=== PATIENT | male | born 1965 | race Caucasian/White ===

== ENCOUNTER 2016-10-25 22:11 | Inpatient (IN) | payer MEDICAID ==
[~2016-10-25] VITALS: Ht 172.7 cm; Wt 94.4 kg
[2016-10-25] MEDS ORDERED: ALBUTEROL SULF 2.5 MG/0.5ML(0.5%) NEB SOLN NEB ONE (22:30)
[2016-10-25] MEDS ORDERED: methylPREDNISolone SOD SUCC 125 MG/2 ML VL IV ONE (22:30)
[2016-10-25] MEDS ORDERED: IPRATROPIUM BROM 0.5 MG/2.5ML INH SOL NEB ONE (22:30)
[2016-10-25 22:57] LABS: DEFINITIVE VIEW TRANSMISSION; Hematocrit 36.7 % (41.0-53.0); Hemoglobin 12.6 g/dL (13.5-17.5); Mean Corpuscular Hemoglobin 34.9 pg (28.0-32.0); Mean Corpuscular Hgb Conc. 34.2 g/dL (32.0-36.0); Mean Platelet Volume 8.9 fL (7.4-10.4); Platelet Count (auto) 45 10^3/uL (140-450); Red Cell Distribution Width 17.8 % (11.6-16.0); White Blood Cell 8.5 10^3/uL (4.4-10.8)
[2016-10-25 23:04] LABS: Metamyelocytes % 0; Myelocytes % 0; Promyelocytes % 0; Reactive Lymphocytes 0
[2016-10-25 23:12] LABS: Albumin 2.5 g/dL (3.4-5.0); Potassium 3.5 mmol/L (3.5-5.1)
[2016-10-25 23:17] LABS: Bilirubin, Total 5.7 mg/dL (0.2-1.0); Total Protein 6.4 g/dL (6.4-8.2)
[2016-10-25 23:24] LABS: B-Type Natriuretic Peptide 100.08 pg/mL (0-100); Temperature: 20.8 C (20.0-25.0)
[2016-10-26] MEDS ORDERED: SODIUM CHLORIDE 0.9% 1,000 ML IV ONE (00:45)
[2016-10-26 00:57] LABS: Burr Cells FEW; Macrocytosis Slight; Platelet Estimate Decreased
[2016-10-26] MEDS ORDERED: LORazepam 2MG/ML-1ML VIAL IV ONE (02:15)
[2016-10-26 02:18] LABS: Urine RBC None Seen /hpf (0 - 3)
[2016-10-26 02:39] LABS: Urine Bilirubin 1+ (Negative); Urine Blood Negative /uL (Negative); Urine Color Yellow (Yellow); Urine Glucose Normal (Normal); Urine Ketone Negative (Negative); Urine Nitrite Negative (Negative); Urine Urobilinogen Normal (Negative)
[2016-10-26] MEDS ORDERED: HYDROmorphone HCL 2 MG/ML VL IM ONE (05:30)
[2016-10-26] MEDS ORDERED: ONDANSETRON HCL 4 MG/2 ML VIAL IV ONE (05:30)
[2016-10-26 07:57] LABS: Amylase 29 U/L (25-115)
[2016-10-26] MEDS ORDERED: SPIRONOLACTONE 25 MG TAB PO ONE (08:15)
[2016-10-26] MEDS ORDERED: FUROSEMIDE 40 MG/4 ML VIAL IV ONE (08:15)
[2016-10-26] MEDS ORDERED: IPRATROPIUM BROM 0.5 MG/2.5ML INH SOL NEB ONE (08:15)
[2016-10-26] MEDS ORDERED: ALBUTEROL SULF 2.5 MG/0.5ML(0.5%) NEB SOLN NEB ONE (08:15)
[2016-10-26] MEDS ORDERED: IOHEXOL 350 MG/ML 100ML IJ ONE (10:08)
[2016-10-26] MEDS: SODIUM CHLORIDE 0.9% 1,000 ML IV SCH (15:15)
[2016-10-26] MEDS ORDERED: LACTULOSE 20Gm/30ML SOLN PO PRN (15:15)
[2016-10-26] MEDS ORDERED: LORazepam 0.5 MG TAB PO PRN (15:15)
[2016-10-26] MEDS ORDERED: PROMETHAZINE HCL 25 MG/ML 1ML IV PRN (15:15)
[2016-10-26] MEDS ORDERED: ALBUTEROL SULF 2.5 MG/0.5ML(0.5%) NEB SOLN NEB PRN (15:15)
[2016-10-26] MEDS ORDERED: TEMAZEPAM 15 MG CAP PO PRN (15:15)
[2016-10-26] MEDS ORDERED: NITROGLYCERIN 0.4 MG SL TAB SL PRN (15:15)
[2016-10-26] MEDS ORDERED: MORPHINE SULF INJ 2 MG/ML SYRINGE 1ML IV PRN ×2 (15:15)
[2016-10-26 16:05] LABS: Partial Thromboplastin Time 33.6 sec (22.64-33.71)
[2016-10-26] MEDS ORDERED: OSELTAMIVIR 75 MG CAP PO ONE (16:15)
[2016-10-26] MEDS ORDERED: DOXYCYCLINE HYC 100MG/250ML 250 ML IV SCH ×2 (16:15→16:30)
[2016-10-26 16:34] LABS: INR 1.56 (0.9-1.15); Prothrombin Time 16.1 sec (9.37-12.3)
[2016-10-26] MEDS: PANTOPRAZOLE 40 MG TAB PO SCH (16:35)
[2016-10-26] MEDS ORDERED: IBUP600T27 PO (18:13)
[2016-10-26] MEDS ORDERED: INFLUENZA QUAD 2016-2017 0.5 ML SYRG IM ONE (18:15)
[2016-10-26] MEDS: methylPREDNISolone SOD SUCC 40 MG/ML VL IV SCH (18:15)
[2016-10-26] MEDS ORDERED: PNEUMOCOCCAL VACC POLYS 25 MCG/0.5 ML VIAL IM ONE (18:15)
[2016-10-26] MEDS: IPRATROPIUM BROM 0.5 MG/2.5ML INH SOL NEB SCH (19:05)
[2016-10-26] MEDS: ALBUTEROL SULF 2.5 MG/0.5ML(0.5%) NEB SOLN NEB SCH (19:05)
[2016-10-26] MEDS ORDERED: LEVOFLOXACIN 500MG 100 ML IV ONE (20:30)
[2016-10-26 22:00] VITALS: BP 145/68
[2016-10-26] MEDS: SODIUM CHLOR 0.9% PF (SALINE LOCK) 10ML VIAL IV SCH (22:07)
[2016-10-26] MEDS: OSELTAMIVIR 75 MG CAP PO SCH (22:07)
[2016-10-27] MEDS: methylPREDNISolone SOD SUCC 40 MG/ML VL IV SCH ×2 (00:07→05:55)
[2016-10-27] MEDS: IPRATROPIUM BROM 0.5 MG/2.5ML INH SOL NEB SCH ×2 (00:22→06:50)
[2016-10-27] MEDS: ALBUTEROL SULF 2.5 MG/0.5ML(0.5%) NEB SOLN NEB SCH ×2 (00:22→06:50)
[2016-10-27 02:27] LABS: Urine RBC None Seen /hpf (0 - 3)
[2016-10-27 02:41] LABS: Urine Bilirubin Negative (Negative); Urine Blood Negative /uL (Negative); Urine Color Yellow (Yellow); Urine Glucose Normal (Normal); Urine Ketone Negative (Negative); Urine Nitrite Negative (Negative); Urine Squamous Epithelial Cell FEW /hpf (<5); Urine Urobilinogen Normal (Negative)
[2016-10-27] MEDS: SODIUM CHLORIDE 0.9% 1,000 ML IV SCH (04:35)
[2016-10-27 05:00] VITALS: BP 147/67
[2016-10-27] MEDS: SODIUM CHLOR 0.9% PF (SALINE LOCK) 10ML VIAL IV SCH (05:55)
[2016-10-27 06:02] LABS: Basophils # (auto) 0 uL; Basophils % (auto) 0.1 % (0.0-2.0); DEFINITIVE VIEW TRANSMISSION; Eosinophils # (auto) 0 uL; Hematocrit 35.5 % (41.0-53.0); Hemoglobin 11.9 g/dL (13.5-17.5); Lymphocytes # (auto) 0.6 uL; Lymphocytes % (auto) 5.9 % (10.0-50.0); Mean Corpuscular Hemoglobin 34.7 pg (28.0-32.0); Mean Corpuscular Hgb Conc. 33.3 g/dL (32.0-36.0); Mean Corpuscular Volume 103.9 fL (80.0-100.0); Mean Platelet Volume 8.8 fL (7.4-10.4); Monocytes # (auto) 1.1 uL; Monocytes % (auto) 10.2 % (0.0-12.0); Neutrophils # (auto) 8.9 uL; Neutrophils % (auto) 83.8 % (37.0-80.0); Platelet Count (auto) 47 10^3/uL (140-450); Red Cell Distribution Width 17.3 % (11.6-16.0); White Blood Cell 10.7 10^3/uL (4.4-10.8)
[2016-10-27 06:34] LABS: Temperature: 21.6 C (20.0-25.0)
[2016-10-27 06:46] LABS: Albumin 2.4 g/dL (3.4-5.0); BUN/Creatinine Ratio 23.1; Bilirubin, Total 5.7 mg/dL (0.2-1.0); Calcium 8.6 mg/dL (8.5-10.1); Potassium 4.7 mmol/L (3.5-5.1); Total Protein 6.6 g/dL (6.4-8.2)
[2016-10-27 08:00] VITALS: BP 128/74
[2016-10-27 09:00] VITALS: BP 128/74
[2016-10-27] MEDS: PANTOPRAZOLE 40 MG TAB PO SCH (10:00)
[2016-10-27] MEDS ORDERED: LEVOFLOXACIN 500MG 100 ML IV SCH (10:00)
[2016-10-27] MEDS: OSELTAMIVIR 75 MG CAP PO SCH (10:00)
== END 2016-10-27 10:20 | disposition left against medical advice (07) | DRG 141 ==
LOC: ER 22:22 → TELE 22:23 → TELE-CENTR 10-26 17:07
PROVIDERS: ADMIT Internal Medicine; ATTEND Internal Medicine
DX: J45.901 Unspecified asthma with (acute) exacerbation (principal); E43 Unspecified severe protein-calorie malnutrition; K70.31 Alcoholic cirrhosis of liver with ascites; K80.20 Calculus of gallbladder without cholecystitis without obstruction; R09.02 Hypoxemia; J11.1 Influenza due to unidentified influenza virus with other respiratory manifestations; D75.89 Other specified diseases of blood and blood-forming organs; Z83.6 Family history of other diseases of the respiratory system; Z82.49 Family history of ischemic heart disease and other diseases of the circulatory system; Z80.9 Family history of malignant neoplasm, unspecified; Z68.31 Body mass index [BMI] 31.0-31.9, adult; Z23 Encounter for immunization
CPT/HCPCS: 36415; 36600; 71020; 71275; 76705; 80053; 80061; 81001; 82140; 82150; 82550; 82805; 83690; 83735; 83880; 84443; 84484; 85007; 85025; 85027; 85379; 85610; 85730; 87400; 93005; 94640; 96361; 96365; 96372; 96375; G0434; J1956; J2405; J3490

== ENCOUNTER 2016-11-28 10:07 | Inpatient (IN) | payer MEDICAID ==
[~2016-11-28] VITALS: Ht 175.3 cm; Wt 108.3 kg
[~2016-11-28 10:07] MED LIST: IBUP600T27 PO
[2016-11-28] MEDS ORDERED: methylPREDNISolone SOD SUCC 125 MG/2 ML VL IV ONE (11:00)
[2016-11-28] MEDS ORDERED: SODIUM CHLORIDE 0.9% 1,000 ML IV ONE (11:00)
[2016-11-28] MEDS ORDERED: PIPERACILLIN-TAZOB 3.375GM 100 ML IV ONE (11:00)
[2016-11-28] MEDS ORDERED: ALBUTEROL SULF 2.5 MG/0.5ML(0.5%) NEB SOLN NEB ONE (11:00)
[2016-11-28] MEDS ORDERED: IPRATROPIUM BROM 0.5 MG/2.5ML INH SOL NEB ONE (11:00)
[2016-11-28] MEDS ORDERED: KETOROLAC TROMETH 30 MG/ML 1ML VIAL IV ONE (11:00)
[2016-11-28] MEDS ORDERED: VANCOMYCIN 1GM/250ML D5W 250 ML IV ONE (11:00)
[2016-11-28 11:29] LABS: Basophils # (auto) 0 uL; Basophils % (auto) 0.6 % (0.0-2.0); DEFINITIVE VIEW TRANSMISSION; Eosinophils # (auto) 0 uL; Eosinophils % (auto) 0.7 % (0.0-7.0); Hematocrit 41.5 % (41.0-53.0); Hemoglobin 13.8 g/dL (13.5-17.5); Lymphocytes # (auto) 1.2 uL; Lymphocytes % (auto) 18.2 % (10.0-50.0); Mean Corpuscular Hemoglobin 35.7 pg (28.0-32.0); Mean Corpuscular Hgb Conc. 33.3 g/dL (32.0-36.0); Mean Corpuscular Volume 107.1 fL (80.0-100.0); Mean Platelet Volume 8.5 fL (7.4-10.4); Monocytes # (auto) 0.9 uL; Monocytes % (auto) 13.1 % (0.0-12.0); Neutrophils # (auto) 4.5 uL; Neutrophils % (auto) 67.4 % (37.0-80.0); Platelet Count (auto) 57 10^3/uL (140-450); White Blood Cell 6.7 10^3/uL (4.4-10.8)
[2016-11-28 11:59] LABS: B-Type Natriuretic Peptide 77.35 pg/mL (0-100)
[2016-11-28 12:09] LABS: Albumin 2.5 g/dL (3.4-5.0); Alkaline Phosphatase 126 U/L (45-117); Anion Gap 11 (5-15); Aspartate Aminotransferase 83 U/L (15-37); BUN/Creatinine Ratio 13.8; Bilirubin, Total 4.5 mg/dL (0.2-1.0); Blood Urea Nitrogen 11 mg/dL (7-18); Calcium 8.3 mg/dL (8.5-10.1); Carbon Dioxide 26 mmol/L (21-32); Chloride 105 mmol/L (98-107); GFR African American 131 mL/min; GFR Non-African American 108 mL/min; Glucose 130 mg/dL (74-106); Magnesium 2.1 mg/dL (1.6-2.6); Potassium 3.2 mmol/L (3.5-5.1); Sodium 142 mmol/L (136-145); Total Protein 6.6 g/dL (6.4-8.2)
[2016-11-28 13:18] LABS: Temperature: 22.7 C (20.0-25.0)
[2016-11-28] MEDS ORDERED: ENOXAPARIN SOD 120 MG/0.8 ML SYRINGE SC ONE (13:45)
[2016-11-28] MEDS ORDERED: POTASSIUM CHL 10% (20 MEQ/15ML) ORAL SOLN PO ONE (13:45)
[2016-11-28] MEDS ORDERED: IOHEXOL 350 MG/ML 100ML IJ ONE (13:53)
[2016-11-28] MEDS ORDERED: LACTULOSE 20Gm/30ML SOLN PO PRN (14:30)
[2016-11-28] MEDS ORDERED: THIAMINE HCL 100 MG/ML 2ML VIAL IV ONE (14:30)
[2016-11-28] MEDS ORDERED: chlordiazePOXIDE HCL 5 MG CAP PO PRN (14:30)
[2016-11-28] MEDS ORDERED: LEVOFLOXACIN 500MG 100 ML IV ONE (14:30)
[2016-11-28] MEDS ORDERED: PROCHLORPERAZINE EDISYLATE 5 MG/ML 2ML VIAL IV PRN (14:30)
[2016-11-28] MEDS ORDERED: NITROGLYCERIN 0.4 MG SL TAB SL PRN (14:30)
[2016-11-28] MEDS ORDERED: MORPHINE SULF INJ 2 MG/ML SYRINGE 1ML IV PRN ×2 (14:30)
[2016-11-28] MEDS ORDERED: ALBUTEROL SULF 2.5 MG/0.5ML(0.5%) NEB SOLN NEB PRN (14:30)
[2016-11-28] MEDS ORDERED: LORazepam 0.5 MG TAB PO PRN (14:30)
[2016-11-28] MEDS ORDERED: CLINDAMYCIN 600MG IV 50 ML IV ONE (14:45)
[2016-11-28] MEDS ORDERED: FUROSEMIDE 40 MG/4 ML VIAL IV ONE (14:45)
[2016-11-28] MEDS ORDERED: METOPROLOL TARTRATE 25 MG TAB PO ONE (14:45)
[2016-11-28] MEDS ORDERED: PANTOPRAZOLE 40 MG TAB PO ONE (14:45)
[2016-11-28 17:42] VITALS: BP 140/76
[2016-11-28] MEDS: SPIRONOLACTONE 25 MG TAB PO SCH (17:48)
[2016-11-28] MEDS: FUROSEMIDE 40 MG/4 ML VIAL IV SCH (17:48)
[2016-11-28] MEDS: ALBUTEROL SULF 2.5 MG/0.5ML(0.5%) NEB SOLN NEB SCH (18:00)
[2016-11-28] MEDS ORDERED: LEVO-28 PO (18:12)
[2016-11-28] MEDS ORDERED: PRE1T PO (18:12)
[2016-11-28 20:00] LABS: Urine RBC None Seen /hpf (0 - 3)
[2016-11-28 20:16] LABS: Urine Bilirubin Negative (Negative); Urine Blood Negative /uL (Negative); Urine Color Yellow (Yellow); Urine Glucose Normal (Normal); Urine Hyaline Cast FEW /lpf (0 - 2); Urine Ketone Negative (Negative); Urine Nitrite Negative (Negative); Urine Urobilinogen Normal (Negative); Urine pH 6.5 (5.0-8.0)
[2016-11-28 22:00] VITALS: BP 113/70
[2016-11-28] MEDS: SODIUM CHLOR 0.9% PF (SALINE LOCK) 10ML VIAL IV SCH (22:10)
[2016-11-28] MEDS: METOPROLOL TARTRATE 25 MG TAB PO SCH (22:10)
[2016-11-28] MEDS: CLINDAMYCIN 600MG IV 50 ML IV SCH (22:10)
[2016-11-28 22:28] VITALS: BP 140/76
[2016-11-28] MEDS: TEMAZEPAM 15 MG CAP PO PRN (22:53)
[2016-11-29] MEDS: ALBUTEROL SULF 2.5 MG/0.5ML(0.5%) NEB SOLN NEB SCH ×3 (00:30→12:48)
[2016-11-29 05:00] VITALS: BP 121/71
[2016-11-29] MEDS: CLINDAMYCIN 600MG IV 50 ML IV SCH ×2 (05:51→13:59)
[2016-11-29] MEDS: SPIRONOLACTONE 25 MG TAB PO SCH ×2 (05:52→17:07)
[2016-11-29] MEDS: FUROSEMIDE 40 MG/4 ML VIAL IV SCH ×2 (05:52→17:07)
[2016-11-29] MEDS: SODIUM CHLOR 0.9% PF (SALINE LOCK) 10ML VIAL IV SCH ×3 (05:52→23:24)
[2016-11-29 05:55] LABS: Basophils # (auto) 0 uL; DEFINITIVE VIEW TRANSMISSION; Eosinophils # (auto) 0 uL; Eosinophils % (auto) 0.2 % (0.0-7.0); Hemoglobin 12.9 g/dL (13.5-17.5); Lymphocytes # (auto) 0.5 uL; Lymphocytes % (auto) 10.7 % (10.0-50.0); Mean Corpuscular Hemoglobin 35.3 pg (28.0-32.0); Mean Corpuscular Volume 106.9 fL (80.0-100.0); Mean Platelet Volume 8.4 fL (7.4-10.4); Monocytes # (auto) 0.2 uL; Monocytes % (auto) 3.9 % (0.0-12.0); Neutrophils # (auto) 3.8 uL; Neutrophils % (auto) 85.2 % (37.0-80.0); Platelet Count (auto) 48 10^3/uL (140-450); Red Cell Distribution Width 17.8 % (11.6-16.0); White Blood Cell 4.5 10^3/uL (4.4-10.8)
[2016-11-29 06:44] LABS: Albumin 2.2 g/dL (3.4-5.0); BUN/Creatinine Ratio 18.4; Bilirubin, Total 3.5 mg/dL (0.2-1.0); Calcium 7.9 mg/dL (8.5-10.1); Potassium 3.8 mmol/L (3.5-5.1); Total Protein 5.8 g/dL (6.4-8.2)
[2016-11-29 09:00] VITALS: BP 109/70
[2016-11-29] MEDS: METOPROLOL TARTRATE 25 MG TAB PO SCH (09:10)
[2016-11-29] MEDS: LEVOFLOXACIN 500MG 100 ML IV SCH (09:10)
[2016-11-29] MEDS ORDERED: THIAMINE HCL 100 MG/ML 2ML VIAL IV SCH (10:00)
[2016-11-29] MEDS ORDERED: FUROSEMIDE 40 MG/4 ML VIAL IV SCH (10:00)
[2016-11-29] MEDS ORDERED: PANTOPRAZOLE 40 MG TAB PO SCH (10:00)
[2016-11-29] MEDS ORDERED: SPIRONOLACTONE 25 MG TAB PO SCH (10:00)
[2016-11-29 13:00] VITALS: BP 100/58
[2016-11-29] MEDS ORDERED: VANCOMYCIN PER PHARMACY 0 MG IV SCH (14:15)
[2016-11-29] MEDS ORDERED: VANCOMYCIN 1GM/250ML D5W 250 ML IV ONE (14:15)
[2016-11-29 15:14] LABS: Partial Thromboplastin Time 30.9 sec (22.64-33.71)
[2016-11-29] MEDS: B-COMPLEX W/ C & FOLIC ACID(NEPHROVITE TAB) PO SCH (15:17)
[2016-11-29 15:23] LABS: INR 1.27 (0.9-1.15); Prothrombin Time 13.7 sec (9.37-12.3)
[2016-11-29] MEDS ORDERED: ACETAMINOPHEN 325 MG TAB PO PRN (15:30)
[2016-11-29 17:00] VITALS: BP 99/53
[2016-11-29 20:00] VITALS: BP 97/53
[2016-11-29 22:00] VITALS: BP 97/53
[2016-11-29] MEDS: VANCOMYCIN 1GM/250ML D5W 250 ML IV SCH (23:22)
[2016-11-29] MEDS: PANTOPRAZOLE 40 MG TAB PO SCH (23:25)
[2016-11-29] MEDS: PROPRANOLOL HCL 20 MG TAB PO SCH (23:47)
[2016-11-30] VITALS (7 sets, daily range): BP systolic 101–120; BP diastolic 58–72
[2016-11-30] MEDS: TEMAZEPAM 15 MG CAP PO PRN ×2 (00:48→22:16)
[2016-11-30 05:55] LABS: Basophils # (auto) 0 uL; Basophils % (auto) 0.4 % (0.0-2.0); DEFINITIVE VIEW TRANSMISSION; Eosinophils # (auto) 0 uL; Eosinophils % (auto) 0.5 % (0.0-7.0); Lymphocytes # (auto) 1.1 uL; Mean Corpuscular Hemoglobin 35.4 pg (28.0-32.0); Mean Corpuscular Hgb Conc. 33.3 g/dL (32.0-36.0); Mean Corpuscular Volume 106.2 fL (80.0-100.0); Mean Platelet Volume 8.2 fL (7.4-10.4); Monocytes # (auto) 0.8 uL; Monocytes % (auto) 9.1 % (0.0-12.0); Neutrophils # (auto) 6.5 uL; Platelet Count (auto) 62 10^3/uL (140-450); Red Cell Distribution Width 17.7 % (11.6-16.0); White Blood Cell 8.4 10^3/uL (4.4-10.8)
[2016-11-30] MEDS: FUROSEMIDE 40 MG/4 ML VIAL IV SCH ×2 (06:20→18:06)
[2016-11-30] MEDS: SODIUM CHLOR 0.9% PF (SALINE LOCK) 10ML VIAL IV SCH ×3 (06:21→22:15)
[2016-11-30 06:22] LABS: Calcium 7.8 mg/dL (8.5-10.1); Potassium 4.1 mmol/L (3.5-5.1)
[2016-11-30] MEDS: SPIRONOLACTONE 25 MG TAB PO SCH ×2 (06:22→18:07)
[2016-11-30] MEDS: VANCOMYCIN 1GM/250ML D5W 250 ML IV SCH ×3 (06:22→22:20)
[2016-11-30] MEDS: B-COMPLEX W/ C & FOLIC ACID(NEPHROVITE TAB) PO SCH (10:12)
[2016-11-30] MEDS: PROPRANOLOL HCL 20 MG TAB PO SCH ×2 (10:13→22:16)
[2016-11-30] MEDS: PANTOPRAZOLE 40 MG TAB PO SCH ×2 (10:14→22:17)
[2016-11-30] MEDS: LEVOFLOXACIN 500MG 100 ML IV SCH (10:14)
[2016-12-01 04:54] VITALS: BP 107/54
[2016-12-01] MEDS: SODIUM CHLOR 0.9% PF (SALINE LOCK) 10ML VIAL IV SCH (06:43)
[2016-12-01] MEDS: SPIRONOLACTONE 25 MG TAB PO SCH (06:43)
[2016-12-01] MEDS: FUROSEMIDE 40 MG/4 ML VIAL IV SCH (06:44)
[2016-12-01] MEDS: VANCOMYCIN 1GM/250ML D5W 250 ML IV SCH (06:47)
[2016-12-01 08:10] VITALS: BP 112/73
[2016-12-01 09:00] VITALS: BP 112/73
[2016-12-01] MEDS: B-COMPLEX W/ C & FOLIC ACID(NEPHROVITE TAB) PO SCH (10:00)
[2016-12-01] MEDS: LEVOFLOXACIN 500MG 100 ML IV SCH (10:00)
[2016-12-01] MEDS: PROPRANOLOL HCL 20 MG TAB PO SCH (10:00)
[2016-12-01] MEDS: PANTOPRAZOLE 40 MG TAB PO SCH (10:01)
[2016-12-01 13:00] VITALS: BP 107/71
== END 2016-12-01 15:15 | disposition home or self-care (01) | DRG 383 ==
LOC: ER 10:09 → TELE 10:10 → TELE-CENTR 17:40
PROVIDERS: ADMIT Internal Medicine; ATTEND Hospitalist
DX: L03.115 Cellulitis of right lower limb (principal); K76.6 Portal hypertension; D69.6 Thrombocytopenia, unspecified; K70.31 Alcoholic cirrhosis of liver with ascites; K72.90 Hepatic failure, unspecified without coma; E87.6 Hypokalemia; F41.9 Anxiety disorder, unspecified; F10.20 Alcohol dependence, uncomplicated; K57.90 Diverticulosis of intestine, part unspecified, without perforation or abscess without bleeding; K80.20 Calculus of gallbladder without cholecystitis without obstruction; K44.9 Diaphragmatic hernia without obstruction or gangrene; J45.909 Unspecified asthma, uncomplicated; I15.9 Secondary hypertension, unspecified; Z82.49 Family history of ischemic heart disease and other diseases of the circulatory system; Z87.891 Personal history of nicotine dependence
CPT/HCPCS: 36415; 71010; 71275; 74176; 76700; 80048; 80053; 80061; 80202; 80307; 81001; 82150; 82550; 83690; 83735; 83880; 84443; 84484; 85025; 85379; 85610; 85652; 85730; 86141; 87040; 93005; 93306; 93970; 94640; 96365; 96366; 96372; 96375; 99291; J1885; J1956; J2543; J3490